=== PATIENT | female | born 1980 | race Caucasian/White ===

== ENCOUNTER 2018-12-15 09:45 | Emergency (ER) | payer OTHER ==
[~2018-12-15] VITALS: Ht 167.6 cm; Wt 81.6 kg
== END 2018-12-15 18:03 | disposition home or self-care (01) ==
LOC: ER 09:45 → EMR PED 09:55 → ER 18:03
DX: S00.81XA Abrasion of other part of head, initial encounter (principal); S10.81XA Abrasion of other specified part of neck, initial encounter; S50.312A Abrasion of left elbow, initial encounter; H10.213 Acute toxic conjunctivitis, bilateral; Y04.2XXA Assault by strike against or bumped into by another person, initial encounter; T65.891A Toxic effect of other specified substances, accidental (unintentional), initial encounter; Y93.89 Activity, other specified; Y92.148 Other place in prison as the place of occurrence of the external cause; Y99.8 Other external cause status